=== PATIENT | male | born 2000 | race American Indian/Alaskan Native ===

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

== ENCOUNTER 2021-09-24 11:20 | Emergency (ER) | payer SELFPAY ==
[2021-09-24] MEDS ORDERED: NALOXONE 2 MG/2 ML INJ ONE ×2 (11:27→13:00)
[2021-09-24] MEDS ORDERED: NALOXONE 0.4 MG/1 ML INJ ONE (11:27)
[2021-09-24] MEDS ORDERED: DEXTROSE 50% IN WATER (25GM) 50 ML SYRINGE IV ONE (11:33)
[2021-09-24] MEDS ORDERED: CALCIUM CHLORIDE 1,000 MG/10 ML SYRINGE IV ONE ×2 (11:39→13:00)
[2021-09-24] MEDS ORDERED: SODIUM BICARB 8.4% 50 MEQ/50 ML SYRINGE IV ONE (13:00)
[2021-09-24] MEDS ORDERED: EPINEPHrine 1 MG/10 ML SYRINGE ONE (13:00)
[2021-09-24] MEDS ORDERED: MAGNESIUM SULFATE 1 GM/2ML (4 MEQ/1ML) INJ ONE (13:00)
--- NOTE | 2021-09-24 14:13 | Emergency Department Report ---
ED CPR HPI - General Chief Complaint: Overdose Stated Complaint: OVERDOSE/CARDIAC ARREST Time Seen by Provider: 09/24/21 11:58 Source: EMS (Verbal report received from emergency medical services. EMS documentation not available at time of chart dictation ) Mode of arrival: Stretcher Limitations: Altered Mental Status, Physical Limitation - History of Present Illness Initial Comments: This is a 21-year-old gentleman. He is brought to the hospital by EMS. Patient arrives with a GCS of 3, and he is receiving [id number] ventilation. EMS reports that patient's last known well time is last night, and that the patient is found to bed this morning by family members. EMS reports that the patient is not breathing, they did report that he had a pulse in the field, and he is also hyperglycemic. Upon initial arrival in the emergency room, the patient is pulseless, and receiving [id number]-tarc ventilation. CPR was immediately initiated. Standard ACLS interventions are initiated. The patient has a prolonged resuscitation here in the emergency room. Please see nursing code sheet. Serial bedside ultrasounds demonstrate no pulses, no pulsatile waveform, and cardiac standstill. In spite of a prolonged and vigorous resuscitation, pulses could not be obtained, and resuscitation efforts are subsequently terminated. Patient's family members are subsequently informed. MD Complaint: found unresponsive, stopped breathing Initial Findings in the Field: unresponsive, no respirations - Related Data Previous Rx's Medication Instructions Recorded Last Taken Type Ibuprofen [Motrin 400 MG tab] 400 mg PO Q8H PRN #30 tablet 06/09/15 Unknown Rx Cyclobenzaprine HCl [Flexeril 5 MG 5 mg PO BID PRN #10 tab 08/12/17 Unknown Rx TAB] Ibuprofen [Motrin 600 MG tab] 600 mg PO Q8H PRN #20 tablet 05/11/19 Unknown Rx Phenazopyridine [Pyridium] 200 mg PO Q8H PRN #15 tab 05/11/19 Unknown Rx Sulfamethoxazole/Trimethoprim 1 each PO Q12H #20 tablet 05/11/19 Unknown Rx [Bactrim DS TAB] Allergies Allergy/AdvReac Type Severity Reaction Status Date / Time No Known Allergies Allergy Verified 06/09/15 16:17 ED Review of Systems ROS: Stated complaint: OVERDOSE/CARDIAC ARREST Other details as noted in HPI Comment: Unobtainable due to pts medical conditions ED Past Medical Hx - Past Medical History Hx Asthma: Yes Additional medical history: ADHD, Right clavicle fx - Surgical History Additional Surgical History: T&A, PE tubes - Social History Smoking Status: Never Smoker Substance Use Type: None - Medications Home Medications: Home Medications Medication Instructions Recorded Confirmed Last Taken Type Ibuprofen [Motrin 400 MG tab] 400 mg PO Q8H PRN #30 tablet 06/09/15 Unknown Rx Cyclobenzaprine HCl [Flexeril 5 MG 5 mg PO BID PRN #10 tab 08/12/17 Unknown Rx TAB] Ibuprofen [Motrin 600 MG tab] 600 mg PO Q8H PRN #20 tablet 05/11/19 Unknown Rx Phenazopyridine [Pyridium] 200 mg PO Q8H PRN #15 tab 05/11/19 Unknown Rx Sulfamethoxazole/Trimethoprim 1 each PO Q12H #20 tablet 05/11/19 Unknown Rx [Bactrim DS TAB] ED Physical Exam - General Limitations: Altered Mental Status, Physical Limitation, Other General appearance: obtunded - Head Head exam: Present: atraumatic, normocephalic - Eye Eye exam: Present: conjunctival injection, other (Pupils are dilated and do not react to light) - ENT ENT exam: Present: normal exam, normal orophraynx, mucous membranes moist, normal external ear exam, other (Emesis is noted on the mouith) - Neck Neck exam: Present: normal inspection - Respiratory Respiratory exam: Absent: normal lung sounds bilaterally (The patient does not breathe) - Cardiovascular Cardiovascular Exam: Present: other (The patient is pulseless). Absent: systolic murmur, diastolic murmur, rubs, gallop - GI/Abdominal GI/Abdominal exam: Present: soft. Absent: distended, tenderness, guarding, rebound, rigid - Rectal Rectal exam: Present: deferred - Extremities Exam Extremities exam: Present: normal inspection, other (No pulses are appreciated) - Back Exam Back exam: Present: normal inspection - Neurological Exam Neurological exam: Present: altered, other (Nonverbal, GCS of 3T) - Skin Skin exam: Present: warm, dry, intact, normal color. Absent: rash ED Medical Decision Making - Medical Decision Making Differential diagnosis, including but not limited to: Overdose, acidosis, electrolyte derangement, intracranial hemorrhage Critical care attestation.: If time is entered above; I have spent that time in minutes in the direct care of this critically ill patient, excluding procedure time. ED Disposition Clinical Impression: Cardiac arrest Disposition: 20 Is pt being admited?: No Does the pt Need Aspirin: No Condition: Undetermined Referrals: PRIMARY CARE, [Primary Care Provider] - 3-5 Days
== END 2021-09-24 18:38 ==
LOC: ED 11:20
DX: I46.9 Cardiac arrest, cause unspecified (principal); J45.909 Unspecified asthma, uncomplicated; Z79.899 Other long term (current) drug therapy
CPT/HCPCS: 92950; 99285; J0171; J2310; J3475; J3490